=== PATIENT | female | born 1965 | race Caucasian/White ===

== ENCOUNTER 2022-03-10 17:18 | Inpatient (IN) | payer MEDICARE, OTHER ==
[~2022-03-10] VITALS: Ht 165.1 cm; Wt 83.9 kg
[2022-03-10] MEDS ORDERED: DULO60CA45 PO (17:57)
[2022-03-10] MEDS ORDERED: IPRA12.9 INH (17:58)
[2022-03-10] MEDS ORDERED: BLOOD SUGAR DIAGNOSTIC 1 EACH STRIP IN ONE (18:00)
[2022-03-10] MEDS ORDERED: QUET100T PO (18:00)
[2022-03-10] MEDS ORDERED: MAGNESIUM HYDROXIDE 30 ML UDC PO PRN (18:00)
[2022-03-10] MEDS ORDERED: EZET10TA32 MT (18:12)
[2022-03-10] MEDS ORDERED: TOPI25TA49 MT (18:12)
[2022-03-10] MEDS ORDERED: ROSU5TAB13 MT (18:12)
[2022-03-10] MEDS ORDERED: FLUT16SP16 BNOSTRILS (18:12)
[2022-03-10] MEDS ORDERED: BUDE10.2 INH (18:12)
[2022-03-10] MEDS ORDERED: LEVO-146 PO (18:12)
[2022-03-10] MEDS ORDERED: DIVA250T47 MT (18:15)
[2022-03-10] MEDS ORDERED: PLEC3TAB PO (18:18)
--- NOTE | 2022-03-10 18:46 | NUR ---
Pt. arrived in the unit via ambulance from on 5150 for GD and transported via a gurney. Pt. placed on 218B, v/s taken, contraband taken and pt. signed the admissions papers. Pt. alert/oriented x3 and confirmed on meds that pt. are taking. Dr. Maradiaga made aware of the admission and with orders. Will endorse to the incoming shift for the completion of the admission. Addendum: 03/10/22 at 1854 by HUGO QUEZADA RN Jae Treviño contacted at [phone] and made aware of the admission.
[2022-03-10 18:51] VITALS: BP 138/72
--- NOTE | 2022-03-10 19:30 | NUR ---
GPS RN NOTE, RECEIVED PATIENT AWAKE AND IN BED, NO S/S OR COMPLAINTS OF PAIN AT THIS TIME. PATIENT IS DISPLAYING NO S/S OF APPARENT DISTRESS AT THIS TIME. PATIENT BREATHING IS UNLABORED WITH EQUAL RISE AND FALL OF THE CHEST. PATIENT IS ALERT AND ORIENTED X 3 ON ROOM AIR WITH A SPO2 98%. PATIENT IS COMPLIANT WITH MEDICATIONS, HYPERVERBAL, ANXIOUS, PARANOID, POLITE, AND COOPERATIVE. PATIENT DENIES SUICIDAL AND HOMICIDAL IDEATIONS AT THIS TIME. PATIENT ASSISTED WITH TURNING AND REPOSITIONING Q2HR AND PRN FOR COMFORT AND CIRCULATION. PATIENT HAS NO NEEDS AT THIS TIME. PATIENT EDUCATED ON THE USE OF THE CALL SHEPPARD. PATIENT BED SIDE RAILS UP X 2 FOR SAFETY. PATIENT BED IS LOCKED AND LOW. WILL CONTINUE TO MONITOR THIS PATIENT Q15 MINUTES WITH THE HELP OF STAFF TO MAINTAIN SAFETY.
[2022-03-10 20:00] VITALS: BP 127/76
[2022-03-10] MEDS: LORAZEPAM 0.5 MG TABLET PO PRN (20:26)
--- NOTE | 2022-03-10 20:26 | NUR ---
GPS RN NOTE, PATIENT HAS A COMPLAINT OF FEELING ANXIOUS AND IS REQUESTING ATIVAN AT THIS TIME. PATIENT VITAL SIGNS ARE STABLE. GAVE ATIVAN 0.5MG PO Q6HR PRN ORDERED. WILL REASSESS FOR ANXIETY AND I WILL CONTINUE TO MONITOR THIS PATIENT WITH THE HELP OF STAFF.
[2022-03-10] MEDS ORDERED: FLUTICASONE PROPIONATE 16 GM BOTTLE NS SCH (23:00)
[2022-03-10] MEDS: TEMAZEPAM 7.5 MG CAPSULE PO PRN (23:20)
--- NOTE | 2022-03-10 23:28 | NUR ---
GPS RN NOTE, PATIENT HAS A COMPLAINT OF NOT BEING ABLE TO SLEEP AND IS REQUESTING RESTORIL AT THIS TIME. PATIENT VITAL SIGNS ARE STABLE. GAVE RESTORIL 7.5MG PO HS PRN ORDERED. WILL REASSESS FOR INSOMNIA AND I WILL CONTINUE TO MONITOR THIS PATIENT WITH THE HELP OF STAFF.
[2022-03-10] MEDS ORDERED: IPRATROPIUM NEB FS 0.5 MG/2.5 ML AMPUL.NEB NEB PRN (23:45)
[2022-03-11] MEDS: ACETAMINOPHEN 325 MG TABLET PO PRN ×2 (01:33→21:56)
[2022-03-11] MEDS: GUAIFENESIN/D-METHORPHAN HB 5 ML UDC PO PRN ×2 (01:33→21:45)
--- NOTE | 2022-03-11 01:33 | NUR ---
GPS RN NOTE, PATIENT HAS A COMPLAINT OF A HEADACHE AT 2 OUT 10 ON THE PAIN SCALE AND IS REQUESTING TYLENOL AT THIS TIME. PATIENT VITAL SIGNS ARE STABLE. GAVE TYLENOL 650MG PO Q6HR PRN ORDERED. WILL REASSESS PAIN AND I WILL CONTINUE TO MONITOR THIS PATIENT WITH THE HELP OF STAFF.
--- NOTE | 2022-03-11 01:34 | NUR ---
GPS RN NOTE, PATIENT HAS A COMPLAINT OF A COUGH AND IS REQUESTING ROBITUSSIN AT THIS TIME. PATIENT VITAL SIGNS ARE STABLE. GAVE ROBITUSSIN DM 5ML 1 UNIT DOSE PO Q6HR PRN ORDERED. WILL REASSESS FOR COUGH AND I WILL CONTINUE TO MONITOR THIS PATIENT WITH THE HELP OF STAFF.
[2022-03-11 08:00] VITALS: BP 118/78
[2022-03-11 08:05] LABS: CHOLESTEROL 149 mg/dL (<200); HDL CHOLESTEROL 61 mg/dL (40-60); LDL 67 mg/dL (0-99); TRIGLYCERIDES 115 mg/dL (30-150)
[2022-03-11 08:07] LABS: ALBUMIN 3.9 g/dL (3.4-5.0); BILIRUBIN,TOTAL 0.7 mg/dL (0.2-1.0); CREATININE 0.9 mg/dL (0.6-1.3); POTASSIUM 3.9 mmol/L (3.5-5.1); TOTAL PROTEIN, SERUM 7.3 g/dL (6.4-8.2)
[2022-03-11] MEDS: EZETIMIBE 10 MG TABLET PO SCH (08:37)
[2022-03-11] MEDS: LEVOTHYROXINE SODIUM 50 MCG TABLET PO SCH (08:37)
[2022-03-11] MEDS: BACI/NEOM/POLY B OINT PKT 1 UDPKT PACKET TP SCH ×2 (09:08→17:15)
[2022-03-11] MEDS: LIDOCAINE 5% (PATCH) 1 EA PATCH TP SCH (09:08)
[2022-03-11] MEDS: LORAZEPAM 0.5 MG TABLET PO PRN (10:03)
--- NOTE | 2022-03-11 10:03 | NUR ---
GPS RN NOTES: PATIENT C/O OF FEELING ANXIOUS AND IS REQUESTING ATIVAN AT THIS TIME. PATIENT'S VITAL SIGNS ARE STABLE. ADMINISTERED PRN ORDERED. WILL REASSESS FOR ANXIETY AND I WILL CONTINUE TO MONITOR THIS PATIENT WITH THE HELP OF STAFF.
--- NOTE | 2022-03-11 11:03 | NUR ---
PATIENT IN THE DINING ROOM IN NO ACUTE DISTRESS NOTED AT THIS TIME, NO S/S ANXIETY NOTED, MEDICATION EFFECTIVE
[2022-03-11] MEDS ORDERED: QUETIAPINE FUMARATE 25 MG TABLET PO PRN (11:30)
[2022-03-11] MEDS: QUETIAPINE FUMARATE 25 MG TABLET PO SCH ×2 (12:14→16:58)
[2022-03-11 16:05] VITALS: BP 132/69
[2022-03-11] MEDS: TOPIRAMATE 25 MG TABLET PO SCH (16:56)
--- NOTE | 2022-03-11 18:37 | NUR ---
GPS RN NOTE, PATIENT IN BED, AWAKE, ALERT, ORIENTED X 3. NO C/O PAIN OR DISCOMFORT AT THIS TIME. BREATHING EVEN AND UNLABORED. PATIENT IS DISPLAYING NO S/S OF APPARENT DISTRESS AT THIS TIME. PATIENT IS COMPLIANT WITH MEDICATIONS EXCEPT FOR SEROQUEL DUE AT 1700. PATIENT WITH EPISODES OF HYPERVERBAL, ANXIOUS, AND PARANOIA THE ENTIRE SHIFT BUT POLITE, AND COOPERATIVE. PATIENT DENIES SUICIDAL AND HOMICIDAL IDEATIONS THE ENTIRE SHIFT. ALL SAFETY MEASURES IMPLEMENTED. BED LOCKED AND IN LOWEST POSITION WITH BED ALARM ON. PATIENT BED SIDE RAILS UP X 2 FOR SAFETY. PATIENT HAS NO NEEDS AT THIS TIME. WILL ENDORSE TO NEXT SHIFT NURSE FOR CONTINUITY OF CARE.
[2022-03-11 20:00] VITALS: BP 125/68
[2022-03-11] MEDS: ATORVASTATIN 10 MG TABLET PO SCH (21:46)
[2022-03-11] MEDS ORDERED: IBUPROFEN 800 MG TABLET PO PRN (22:00)
[2022-03-11] MEDS ORDERED: QUETIAPINE FUMARATE 100 MG TABLET PO SCH (22:00)
[2022-03-12] MEDS ORDERED: IBUPROFEN 400 MG TABLET ONE (03:59)
[2022-03-12] MEDS: IBUPROFEN 400 MG TABLET PO PRN (04:13)
--- NOTE | 2022-03-12 05:02 | NUR ---
GPS RN NOTES: ALERT AND ORIENTATED X3. FREQUENTLY AT THE NURSING STATION ASKING FOR WATER, PAIN PILL, MOTRIN, WILL ASK WHEN WILL SHE GET HER MEDICATION TOMORROW AND WHAT TIMES. SHE IS HYPERVERBAL AND AN ATTENTION SEEKER. SHE SLEP FOR SHORT PERIODS. REQUESTED A WALKER TO AMBULAT SAFER, WALKER GIVEN TO HER.
[2022-03-12] MEDS: LEVOTHYROXINE SODIUM 50 MCG TABLET PO SCH (06:14)
[2022-03-12 08:00] VITALS: BP 147/89
[2022-03-12] MEDS: LIDOCAINE 5% (PATCH) 1 EA PATCH TP SCH (09:33)
[2022-03-12] MEDS: EZETIMIBE 10 MG TABLET PO SCH (09:33)
[2022-03-12] MEDS: TOPIRAMATE 25 MG TABLET PO SCH ×2 (09:34→16:05)
[2022-03-12] MEDS: QUETIAPINE FUMARATE 25 MG TABLET PO SCH ×2 (09:34→16:05)
[2022-03-12] MEDS: BACI/NEOM/POLY B OINT PKT 1 UDPKT PACKET TP SCH ×2 (09:36→16:07)
[2022-03-12] MEDS: LORAZEPAM 0.5 MG TABLET PO PRN (14:38)
[2022-03-12 16:00] VITALS: BP 150/85
[2022-03-12] MEDS: GUAIFENESIN/D-METHORPHAN HB 5 ML UDC PO PRN (16:04)
[2022-03-12 20:25] VITALS: BP 130/95
[2022-03-12] MEDS: ATORVASTATIN 10 MG TABLET PO SCH (21:46)
[2022-03-12] MEDS: TEMAZEPAM 7.5 MG CAPSULE PO PRN (21:48)
--- NOTE | 2022-03-12 21:49 | NUR ---
Pt c/o insomnia. Least restrictive measures ineffective. Restoril 7.5 mg po prn given as ordered. Will continue to monitor.
[2022-03-12] MEDS ORDERED: QUETIAPINE FUMARATE 100 MG TABLET PO SCH (22:00)
--- NOTE | 2022-03-12 22:52 | NUR ---
Post 1 hr Restoril effective. Pt asleep in bed easy to arouse. Frequent visual check done for safety. Will continue to monitor.
[2022-03-13] MEDS: GUAIFENESIN/D-METHORPHAN HB 5 ML UDC PO PRN (01:11)
--- NOTE | 2022-03-13 01:17 | NUR ---
Pt c/o cough and itchy throat. Robitussin DM syrup po prn given as ordered. Will continue to monitor.
--- NOTE | 2022-03-13 02:30 | NUR ---
Post 1 hr Robitussin DM cough syrup effective. No more cough. Frequent visual check done for safety. Will continue to monitor.
[2022-03-13] MEDS: LEVOTHYROXINE SODIUM 50 MCG TABLET PO SCH (06:15)
[2022-03-13] MEDS: IBUPROFEN 400 MG TABLET PO PRN (06:15)
--- NOTE | 2022-03-13 06:16 | NUR ---
Pt c/o head ache 10/09. Motrin 400 mg po prn given as ordered. Will continue to monitor.
--- NOTE | 2022-03-13 06:51 | NUR ---
Dimplerin effective. CT 04/11. Will continue to monitor. Will endorse to next shift.
--- NOTE | 2022-03-13 07:43 | NUR ---
WOUND CARE CONSULT: PT PRESENTS WITH DISCOLORATION TO RT FOOT/TOES AND WOUND TO LEFT PLANTAR GREAT TOE, PRESENT ON ADMISSION. PT STATES THAT SHE STEPPED ON BROKEN CERAMIC/GLASS PRIOR TO ADMISSION. PODIATRY CONSULT TO BE CALLED THIS AM. IN AGREEMENT WITH PLAN OF CARE.
[2022-03-13 08:00] VITALS: BP 139/88
[2022-03-13] MEDS: BACI/NEOM/POLY B OINT PKT 1 UDPKT PACKET TP SCH ×2 (09:00→17:12)
[2022-03-13] MEDS: QUETIAPINE FUMARATE 25 MG TABLET PO SCH ×2 (09:00→17:11)
[2022-03-13] MEDS: EZETIMIBE 10 MG TABLET PO SCH (10:04)
[2022-03-13] MEDS: TOPIRAMATE 25 MG TABLET PO SCH ×2 (10:04→17:11)
[2022-03-13] MEDS: LIDOCAINE 5% (PATCH) 1 EA PATCH TP SCH (10:06)
--- NOTE | 2022-03-13 13:11 | NUR ---
RN NOTES RECEIVED PT AWAKE, ALERT AND ORIENTATED X3, EXTREMELY NEEDY AND ATTENTION SEEKING, TALKS AND RAMLBES ON VERY FAST FROM TOPIC TO TOPIC, SHE IS HYPER - ACTIVE, HYPER-VERBAL AND NOT EASY TO CALM DOWN AT THIS TIME, RE-DIRECTED AND EXPLAINED TO PLEASE BE COURTEOUS OF OTHER PATIENTS IT IS EARLY IN THE AM AND OTHERS ARE TRYING TO SLEEP. SHE IS USING THE WALKER TO AMBULATE AND HAS A SEMI - STEADY GAIT, ABLE TO MAKE ALL NEEDS KNOWN, WOUNDS ASSESSED BY FUEL ISLAND ATTENDANT, FRESH WATER GIVEN AND EYE DROPS PROVIDED IN EACH EYE, COMPLIANT WITH ALL MEDICATION ORDERS, TO BE MOVED TO MED - SURG FOR DEBRIDEMENT LATER TODAY FOR PROCEDURE ON THE LEFT GREAT TOE.
--- NOTE | 2022-03-13 14:52 | NUR ---
STEPHANIE Clinical Note: Pt placed on a 5150 hold for GD. Pt brought to the hospital due to pt being unable to care for self at home. Patient currently resides at home located at [address] [place] [address]; ([phone]). Patient reported that she does not want to return back home and wants placement. STEPHANIE will contact pt's daughter Mellisa ([phone]) to discuss treatment and discharge plan.
--- NOTE | 2022-03-13 14:52 | NUR ---
STEPHANIE Initial Discharge Note: Patient currently resides at home located at [address] [place] [id number]; ([phone]). Patient reported that she does not want to return back home and wants placement. STEPHANIE will contact pt's daughter Mellisa ([phone]) to discuss treatment and discharge plan. STEPHANIE will work with the MD, treatment team, and family to help coordinate appropriate discharge.
--- NOTE | 2022-03-13 14:53 | NUR ---
Treatment Plan: Pt unable to sign treatment plan due to being manic and hyperverbal.
--- NOTE | 2022-03-13 14:55 | NUR ---
Social Work Note/Substance Abuse Intervention: Patient was provided with a brief substance abuse intervention and referred to [facility] ([phone]), [facility] ([phone]), and [facility] ([phone]) for drinking alcohol twice a year.
--- NOTE | 2022-03-13 15:11 | NUR ---
STEPHANIE Family Contact: SW contacted pt's daughter Mellisa ([phone]) and left a detailed voicemail.
--- NOTE | 2022-03-13 15:16 | NUR ---
Registered Physical Therapist: Per pt's request, SW contacted [employer] requesting to gather more information about pt and to locate pt's chief scientific officer (Sloane). STEPHANIE spoke with Galina Leal coordinator who stated that she will further investigate to find family service caseworker Sloane and they will contact this technical writer and editor.
[2022-03-13 16:00] VITALS: BP 122/85
[2022-03-13 20:03] VITALS: BP 116/80
[2022-03-13] MEDS: ATORVASTATIN 10 MG TABLET PO SCH (21:24)
[2022-03-13] MEDS: TEMAZEPAM 7.5 MG CAPSULE PO PRN (21:24)
[2022-03-13] MEDS ORDERED: QUETIAPINE FUMARATE 100 MG TABLET PO SCH (22:00)
[2022-03-14 08:00] VITALS: BP 124/82
[2022-03-14] MEDS: LEVOTHYROXINE SODIUM 50 MCG TABLET PO SCH (08:03)
[2022-03-14] MEDS: QUETIAPINE FUMARATE 25 MG TABLET PO SCH ×4 (08:10→17:33)
[2022-03-14] MEDS: TOPIRAMATE 25 MG TABLET PO SCH ×2 (08:10→17:33)
[2022-03-14] MEDS: LIDOCAINE 5% (PATCH) 1 EA PATCH TP SCH (08:10)
[2022-03-14] MEDS: EZETIMIBE 10 MG TABLET PO SCH (08:10)
[2022-03-14] MEDS: BACI/NEOM/POLY B OINT PKT 1 UDPKT PACKET TP SCH (08:15)
--- NOTE | 2022-03-14 10:13 | NUR ---
Content Management Consultant: SW contacted spoke with pt's bilingual patient support caseworker Sloane ([phone]) and discussed pt's discharge plan. She stated that she is in the process of finding pt placement called [facility] but they do not have a bed available at the moment and is unsure how long it will take. SETPHANIE stated this senior technical writer can find pt a temporarily placement in the meantime until it is figured out and she was agreeable of this.
--- NOTE | 2022-03-14 10:50 | NUR ---
STEPHANIE Family Contact: STEPHANIE spoke with patient's daughter Alberto ([phone]) who stated that Mellisa the other daughter does not want to be involved in patient's care. Alberto reported that she is the payee for pt and is in the process of notarizing DPOA documents. Alberto stated that she has been working with pt's upper caser Sloane who is helping with placement at [facility]. She did stated if this does not work out she would want this automobile service writer to find a temporarily placement until they find an appropriate placement. Daughter preferred in [place] location. Daughter shared with this automobile service writer that pt has been manic and labile at home and has been uncooperative with her. She stated that pt's behavior has escalated and stated that she assumes that pt has been drinking alcohol consistently. STEPHANIE will continue working with daughter for placement.
--- NOTE | 2022-03-14 12:17 | NUR ---
STEPHANIE Family Contact: SW spoke with patient's daughter Alberto ([phone]) and discussed the recommendation for pt that she will require a higher level of care such as a retirement before she goes to a residential program. Daughter was agreeable of this and agreeable of this press writer to send clinicals to [facility].
--- NOTE | 2022-03-14 12:18 | NUR ---
SNF Referral: SW sent clinicals to [facility] to Zahra Valencia ([phone]) for placement. SW sent H & P, progress notes, and medication list.
[2022-03-14] MEDS: GABAPENTIN 100 MG CAPSULE PO SCH ×2 (13:35→17:34)
--- NOTE | 2022-03-14 15:25 | NUR ---
SNF Contact: SW received a call from [facility] to Zahra Valencia ([phone]) who stated pt is accepted.
[2022-03-14 15:57] VITALS: BP 133/84
--- NOTE | 2022-03-14 17:49 | NUR ---
pt refused seroquel.[facility]
[2022-03-14] MEDS: NEOMY SULF/BACITRAC ZN/POLY 15 GM TUBE TP SCH (17:56)
--- NOTE | 2022-03-14 18:47 | NUR ---
RN-NOTES PATIENT VISIBLE IN THE UNIT A/O X3. NOTED WITH EASILY ANGRY,DEMANDING AND NEEDY BEHAVIOR. NO ACUTE DISTRESS NOTED.COMPLIANT WITH MEDICATIONS. AMBULATORY WITH WALKER. ALL NEEDS ATTENDED AND ANTICIPATED. WILL CONT. MONITORING FOR SAFETY AND BEHAVIOR. WILL ENDORSE TO INCOMING NURSE FOR CONTINUITY OF CARE
[2022-03-14 20:00] VITALS: BP 142/79
[2022-03-14] MEDS: QUETIAPINE FUMARATE 100 MG TABLET PO SCH (21:20)
[2022-03-14] MEDS: ATORVASTATIN 10 MG TABLET PO SCH (21:20)
[2022-03-14] MEDS: TEMAZEPAM 7.5 MG CAPSULE PO PRN (21:24)
[2022-03-15] MEDS: LEVOTHYROXINE SODIUM 50 MCG TABLET PO SCH (07:07)
[2022-03-15] MEDS: IBUPROFEN 400 MG TABLET PO PRN ×3 (07:24→22:54)
[2022-03-15 08:00] VITALS: BP 141/65
[2022-03-15] MEDS: QUETIAPINE FUMARATE 25 MG TABLET PO SCH ×3 (09:18→17:24)
[2022-03-15] MEDS: TOPIRAMATE 25 MG TABLET PO SCH ×2 (09:18→17:25)
[2022-03-15] MEDS: EZETIMIBE 10 MG TABLET PO SCH (09:18)
[2022-03-15] MEDS: GABAPENTIN 100 MG CAPSULE PO SCH ×3 (09:18→17:25)
[2022-03-15] MEDS: NEOMY SULF/BACITRAC ZN/POLY 15 GM TUBE TP SCH ×2 (09:19→17:26)
[2022-03-15] MEDS: LIDOCAINE 5% (PATCH) 1 EA PATCH TP SCH (09:19)
--- NOTE | 2022-03-15 11:24 | NUR ---
Court Notification: SW contacted pt's daughter Alberto ([phone]) and left a voicemail of pt's 6961 hearing.
--- NOTE | 2022-03-15 11:25 | NUR ---
Court Hearing: Patient's court hearing for 4920 was today and it was upheld for danger to others and GD.
[2022-03-15] MEDS ORDERED: LIDOCAINE 1% INJ 50 ML MDV IJ ONE ×2 (15:30→16:00)
--- NOTE | 2022-03-15 15:40 | NUR ---
FALGUNICO: Pt was seen by Dr Cooley Dpm.
[2022-03-15 16:00] VITALS: BP 138/83
--- NOTE | 2022-03-15 16:00 | NUR ---
NURSE NOTE; PT ABOUT TO HAVE PROCEDURE TO FOOT, REQUESTED IBUPROPHEN PO. IBUPROPHEN ADMINISTERED ORDERED. PT BETO WELL. WILL CONT TO MONITOR.
--- NOTE | 2022-03-15 17:45 | NUR ---
NURSE NOTE: DR MANRIQUEZ DID DEBRIDEMENT OF L TOE AT BEDSIDE. PT BETO WELL. WILL CONT TO MONITOR.
[2022-03-15 19:50] VITALS: BP 119/85
[2022-03-15 20:00] VITALS: BP_SYST 112; BP_SYST 119; BP_DIAS 52; BP_DIAS 85
[2022-03-15] MEDS: ATORVASTATIN 10 MG TABLET PO SCH (22:54)
[2022-03-15] MEDS: QUETIAPINE FUMARATE 100 MG TABLET PO SCH (22:54)
[2022-03-16] MEDS: IBUPROFEN 400 MG TABLET PO PRN ×2 (06:17→20:05)
[2022-03-16] MEDS: LEVOTHYROXINE SODIUM 50 MCG TABLET PO SCH (07:33)
[2022-03-16 08:00] VITALS: BP 116/72
[2022-03-16] MEDS: GABAPENTIN 100 MG CAPSULE PO SCH (08:28)
[2022-03-16] MEDS: QUETIAPINE FUMARATE 25 MG TABLET PO SCH ×3 (08:28→17:04)
[2022-03-16] MEDS: LIDOCAINE 5% (PATCH) 1 EA PATCH TP SCH (08:29)
[2022-03-16] MEDS: TOPIRAMATE 25 MG TABLET PO SCH ×2 (08:29→17:04)
[2022-03-16] MEDS: EZETIMIBE 10 MG TABLET PO SCH (08:29)
[2022-03-16] MEDS: GABAPENTIN 300 MG CAPSULE PO SCH ×3 (09:00→17:04)
--- NOTE | 2022-03-16 09:10 | NUR ---
RN-NOTES NEURONTIN 300MG P.O NOT ADMINISTER DUE TO NEURONTIN 200MG P.O WAS GIVEN AT 0828 AM.
[2022-03-16] MEDS: NEOMY SULF/BACITRAC ZN/POLY 15 GM TUBE TP SCH ×2 (09:14→17:05)
[2022-03-16 16:00] VITALS: BP 120/84
--- NOTE | 2022-03-16 18:35 | NUR ---
RN-NOTES PATIENT VISIBLE IN THE UNIT A/O X3. NOTED WITH EASILY ANGRY,HOARDING HOSPITAL PAPERS AND SOCKS IN HER ROOM, DEMANDING AND NEEDY BEHAVIOR. NO ACUTE DISTRESS NOTED.COMPLIANT WITH MEDICATIONS. AMBULATORY WITH WALKER. ALL NEEDS ATTENDED AND ANTICIPATED. WILL CONT. MONITORING FOR SAFETY AND BEHAVIOR. WILL ENDORSE TO INCOMING NURSE FOR CONTINUITY OF CARE.
--- NOTE | 2022-03-16 19:46 | NUR ---
RN NOTES:PATIENT SITTING IN HER BED ,NO S/SX OF ACUTE DISTRESS NOTED,EASILY AGITATED,DISORGANIZED,GUARDED PARANOID,ANXIOUS POOR JUDGEMENT INSIGHT AND IMPULSE CONTROL, NEEDY DEMENDING , HYPERVERBAL ,INTRUSIVE,NEEDS FREQUENT REDIRECTION, ALL NEEDS ATTENDED AND ANTICIPATED, DENIES SI/HI AT THIS TIME.ENCOURAGE TO VERBALIZED ANY FEELING OR CONCERN, SAFETY MEASURES IN PLACE. WILL CONTINUE TO MONITOR .
[2022-03-16 20:00] VITALS: BP 122/89
[2022-03-16] MEDS: ATORVASTATIN 10 MG TABLET PO SCH (21:34)
[2022-03-16] MEDS: QUETIAPINE FUMARATE 100 MG TABLET PO SCH (21:34)
[2022-03-17 08:00] VITALS: BP 120/84
[2022-03-17] MEDS: NEOMY SULF/BACITRAC ZN/POLY 15 GM TUBE TP SCH ×2 (08:41→16:47)
[2022-03-17] MEDS: GABAPENTIN 300 MG CAPSULE PO SCH ×3 (08:54→16:23)
[2022-03-17] MEDS: EZETIMIBE 10 MG TABLET PO SCH (08:54)
[2022-03-17] MEDS: LIDOCAINE 5% (PATCH) 1 EA PATCH TP SCH (08:54)
[2022-03-17] MEDS: TOPIRAMATE 25 MG TABLET PO SCH ×2 (08:54→16:23)
[2022-03-17] MEDS: LEVOTHYROXINE SODIUM 50 MCG TABLET PO SCH (08:54)
[2022-03-17] MEDS: QUETIAPINE FUMARATE 25 MG TABLET PO SCH ×3 (08:55→16:23)
[2022-03-17] MEDS: LORAZEPAM 0.5 MG TABLET PO PRN ×2 (10:11→17:29)
[2022-03-17] MEDS: IBUPROFEN 400 MG TABLET PO PRN ×2 (14:23→23:20)
[2022-03-17 16:00] VITALS: BP 129/82
[2022-03-17] MEDS: GUAIFENESIN/D-METHORPHAN HB 5 ML UDC PO PRN (16:23)
[2022-03-17 20:00] VITALS: BP 130/85
--- NOTE | 2022-03-17 20:52 | NUR ---
RN NOTES: PATIENT SITTING IN HER ROOM ,NO S/SX OF ACUTE DISTRESS NOTED,EASILY AGITATED,DISORGANIZED,GUARDED PARANOID,ANXIOUS POOR JUDGEMENT INSIGHT AND IMPULSE CONTROL, NEEDY, DEMENDING , HYPERVERBAL HOARDING HOSPITAL USED DIRTY AND CLEAN SUPPLIES IN HER ROOM, INTRUSIVE,NEEDS FREQUENT REDIRECTION, ALL NEEDS ATTENDED AND ANTICIPATED, DENIES SI/HI AT THIS TIME.ENCOURAGE TO VERBALIZED ANY FEELING OR CONCERN, SAFETY MEASURES IN PLACE. WILL CONTINUE TO MONITOR .
[2022-03-17] MEDS: QUETIAPINE FUMARATE 100 MG TABLET PO SCH (21:30)
[2022-03-17] MEDS: ATORVASTATIN 10 MG TABLET PO SCH (21:30)
[2022-03-17] MEDS: MAG HYDROX/AL HYDROX/SIMETH 30 ML UDC PO PRN (23:21)
[2022-03-18] MEDS: LEVOTHYROXINE SODIUM 50 MCG TABLET PO SCH (07:46)
[2022-03-18 08:00] VITALS: BP 118/77
[2022-03-18] MEDS: GABAPENTIN 300 MG CAPSULE PO SCH ×3 (08:54→16:47)
[2022-03-18] MEDS: LIDOCAINE 5% (PATCH) 1 EA PATCH TP SCH (08:54)
[2022-03-18] MEDS: EZETIMIBE 10 MG TABLET PO SCH (08:54)
[2022-03-18] MEDS: QUETIAPINE FUMARATE 25 MG TABLET PO SCH ×4 (08:54→22:05)
[2022-03-18] MEDS: TOPIRAMATE 25 MG TABLET PO SCH ×2 (08:54→16:46)
[2022-03-18] MEDS: NEOMY SULF/BACITRAC ZN/POLY 15 GM TUBE TP SCH ×2 (08:55→16:47)
[2022-03-18] MEDS: IBUPROFEN 400 MG TABLET PO PRN ×3 (09:39→22:07)
[2022-03-18] MEDS: LORAZEPAM 0.5 MG TABLET PO PRN (09:39)
--- NOTE | 2022-03-18 09:40 | NUR ---
NURSE NOTE: PT ANXIOUS AND IN PAIN. REQUESTED IBUPROPHEN AND ATIVAN AT THIS TIME. ADMINISTERED ORDERED. PT BETO WELL. WILL CONT TO MONITOR.
--- NOTE | 2022-03-18 14:40 | NUR ---
NURSE NOTE: PT SAYS SHE IS FEELING BETTER AND DENIES PAIN. ATIVAN AND IBUPROPHEN EFFECTIVE AT THIS TIME. WILL CONT TO MONITOR.
[2022-03-18 16:00] VITALS: BP 115/69
[2022-03-18 20:00] VITALS: BP 125/71
[2022-03-18] MEDS: QUETIAPINE FUMARATE 100 MG TABLET PO SCH (22:05)
[2022-03-18] MEDS: ATORVASTATIN 10 MG TABLET PO SCH (22:06)
[2022-03-19] MEDS: MAG HYDROX/AL HYDROX/SIMETH 30 ML UDC PO PRN (01:55)
--- NOTE | 2022-03-19 02:42 | NUR ---
Patient is ambulating within the room. She is alert and orientatedX4. She is continually discussing what will happen to her home, all of the things that she has accumulated, how will it be dispersed. Eventhough she is alert and orientated, she has scattered thoughts. She denies SI. Her voice and words are clear. Addendum: 03/19/22 at 0251 by REGISTRY [facility] INPATIENT RN1 RN The patient continues to discuss what has happened to the things within her room, what has happened to them. Dressing intact. Pain management implemented.
--- NOTE | 2022-03-19 06:43 | NUR ---
This patient was treated with motrin at 2200, and she admits to pain relief and adequate pain control.
[2022-03-19 08:00] VITALS: BP 133/77
[2022-03-19] MEDS: LEVOTHYROXINE SODIUM 50 MCG TABLET PO SCH (08:05)
[2022-03-19] MEDS: EZETIMIBE 10 MG TABLET PO SCH (08:50)
[2022-03-19] MEDS: GABAPENTIN 300 MG CAPSULE PO SCH ×3 (08:50→17:08)
[2022-03-19] MEDS: TOPIRAMATE 25 MG TABLET PO SCH ×2 (08:50→17:09)
[2022-03-19] MEDS: QUETIAPINE FUMARATE 25 MG TABLET PO SCH ×4 (08:50→21:39)
[2022-03-19] MEDS: NEOMY SULF/BACITRAC ZN/POLY 15 GM TUBE TP SCH ×2 (08:51→17:35)
[2022-03-19] MEDS: LIDOCAINE 5% (PATCH) 1 EA PATCH TP SCH (09:00)
[2022-03-19 16:00] VITALS: BP 127/86
[2022-03-19 20:43] VITALS: BP 133/79
[2022-03-19] MEDS: ATORVASTATIN 10 MG TABLET PO SCH (21:38)
[2022-03-19] MEDS: QUETIAPINE FUMARATE 100 MG TABLET PO SCH (21:39)
[2022-03-19] MEDS: GUAIFENESIN/D-METHORPHAN HB 5 ML UDC PO PRN (21:46)
--- NOTE | 2022-03-19 21:47 | NUR ---
Pt c/o cough and itchy throat. Robitussin DM syrup 5 ml po prn given as ordered. Will continue to monitor.
[2022-03-19] MEDS: IBUPROFEN 400 MG TABLET PO PRN (22:29)
--- NOTE | 2022-03-19 22:32 | NUR ---
Pt c/o Left jaw pain 10/09. Motrin 400 mg po prn given as ordered. Will continue to monitor.
--- NOTE | 2022-03-19 22:50 | NUR ---
Post 1 hr Robitussin DM syrup effective. No more cough or itchy throat. Will continue to monitor.
--- NOTE | 2022-03-19 23:40 | NUR ---
Post 1 hr Motrin effective. RI 0/10. Frequent visual check done for safety. Will continue to monitor.
--- NOTE | 2022-03-20 02:48 | NUR ---
GENERAL HOUSE WORKER reported he heard a thump noise. He found pt lying on floor by her bed. Pt alert and oriented x 3 and states," i was sleeping and rolled off the bed and landed on my right elbow." No head injury noted. Full body check done. No lumps or bumps noted. Right elbow with no apparent injury. No bruising or swelling noted. No c/o pain. Pt was able to stand up with own strength with minimal assistance. Vital signs taken. BP- 114/78, HR-85, RR 19, O2 sat 98%, T 98.0. No s/s of any kind of distress. Respiration even and unlabored without SOB noted. Charge Nurse aware. Reported to bingo caller MD Sarbjit Zurita and with no new orders. Daughter Alberto Treviño [phone] called and left voice message. Will continue to monitor. Frequent visual check done for safety. Pt lying in bed calmly. Will continue to monitor. Will endorse to next shift.
[2022-03-20] MEDS: LEVOTHYROXINE SODIUM 50 MCG TABLET PO SCH (06:14)
[2022-03-20 08:00] VITALS: BP 124/69
[2022-03-20] MEDS: TOPIRAMATE 25 MG TABLET PO SCH ×2 (09:00→18:21)
[2022-03-20] MEDS: QUETIAPINE FUMARATE 25 MG TABLET PO SCH ×3 (09:00→18:21)
[2022-03-20] MEDS: EZETIMIBE 10 MG TABLET PO SCH (09:00)
[2022-03-20] MEDS: GABAPENTIN 300 MG CAPSULE PO SCH ×3 (09:00→17:00)
[2022-03-20] MEDS: NEOMY SULF/BACITRAC ZN/POLY 15 GM TUBE TP SCH ×2 (09:01→17:00)
[2022-03-20] MEDS: LIDOCAINE 5% (PATCH) 1 EA PATCH TP SCH (09:01)
[2022-03-20] MEDS: LITHIUM CARBONATE 150 MG CAPSULE PO SCH ×2 (13:23→20:52)
[2022-03-20 16:00] VITALS: BP 127/80
[2022-03-20] MEDS: CLINDAMYCIN HCL 150 MG CAPSULE PO SCH (18:24)
[2022-03-20 18:29] LABS: BASOPHILS # (AUTO) 0.1 K/uL (0.0-0.2); BASOPHILS % (AUTO) 0.8 % (0.0-2.0); EOSINOPHILS % (AUTO) 2.8 % (0.0-6.0); HEMATOCRIT 39 % (33-45); HEMOGLOBIN 12.9 g/dL (11.5-14.8); LYMPHOCYTES # (AUTO) 2.4 K/uL (0.8-4.8); LYMPHOCYTES % (AUTO) 34.5 % (20.0-44.0); MEAN CORPUSCULAR HGB CONC 33 g/dl (31.0-36.0); MEAN CORPUSCULAR VOLUME 92 fL (82-100); MONOCYTES # (AUTO) 0.7 K/uL (0.1-1.30); MONOCYTES % (AUTO) 9.3 % (2.0-12.0); NEUTROPHILS # (AUTO) 3.7 K/uL (1.8-8.9); NEUTROPHILS % (AUTO) 52.6 % (43.0-81.0); PLATELET COUNT (AUTO) 294 K/uL (150-450); RED BLOOD CELL COUNT(AUTO) 4.21 MIL/uL (4.0-5.2)
[2022-03-20 19:31] LABS: ALBUMIN 3.9 g/dL (3.4-5.0); BILIRUBIN,TOTAL 0.3 mg/dL (0.2-1.0); CALCIUM, SERUM 8.9 mg/dL (8.5-10.1); CREATININE 0.9 mg/dL (0.6-1.3); POTASSIUM 3.7 mmol/L (3.5-5.1); TOTAL PROTEIN, SERUM 7.1 g/dL (6.4-8.2)
[2022-03-20 19:39] LABS: THYROID STIMULATING HORMONE 1.045 uIU/mL (0.358-3.74)
[2022-03-20 20:30] VITALS: BP 134/77
[2022-03-20] MEDS: ATORVASTATIN 10 MG TABLET PO SCH (21:02)
[2022-03-20] MEDS ORDERED: QUETIAPINE FUMARATE 100 MG TABLET PO SCH (22:00)
[2022-03-21] MEDS: CLINDAMYCIN HCL 150 MG CAPSULE PO SCH ×4 (00:22→17:03)
[2022-03-21] MEDS: IBUPROFEN 400 MG TABLET PO PRN (03:13)
--- NOTE | 2022-03-21 05:20 | NUR ---
RN NOTE PATIENT WAS SEEN BY MAINTENANCE SUPERVISOR CALLING S Addendum: 03/21/22 at 0644 by HUDSON VELÁSQUEZ RN MAINTENANCE SUPERVISOR SEEN PATIENT CALLING 911 WHILE DOING HIS ROUNDS AND HE INTERCEPTED THE CALL RIGHT AWAY. REDIRECTED PATIENT TO HER ROOM. WHEN ASKED PATIENT WHAT HAPPENED? PATIENT STATED " I WANNA GO HOME" HOWEVER, PATIENT APOLOGIZED OF THE ACTIONS SHE MADE. ADMINISTERED ATIVAN 0.5MG PO ORDERED. WILL CONTINUE TO MONITOR PATIENT'S SAFETY.
[2022-03-21] MEDS: LORAZEPAM 0.5 MG TABLET PO PRN (05:31)
[2022-03-21] MEDS: LEVOTHYROXINE SODIUM 50 MCG TABLET PO SCH (06:17)
[2022-03-21] MEDS: MAG HYDROX/AL HYDROX/SIMETH 30 ML UDC PO PRN (06:39)
[2022-03-21 08:00] VITALS: BP 106/58
[2022-03-21] MEDS: GABAPENTIN 300 MG CAPSULE PO SCH ×3 (08:56→16:27)
[2022-03-21] MEDS: LIDOCAINE 5% (PATCH) 1 EA PATCH TP SCH (08:57)
[2022-03-21] MEDS: EZETIMIBE 10 MG TABLET PO SCH (08:57)
[2022-03-21] MEDS: LITHIUM CARBONATE 150 MG CAPSULE PO SCH ×2 (08:57→21:15)
[2022-03-21] MEDS: TOPIRAMATE 25 MG TABLET PO SCH ×2 (08:57→16:27)
[2022-03-21] MEDS: QUETIAPINE FUMARATE 25 MG TABLET PO SCH (08:57)
[2022-03-21] MEDS: NEOMY SULF/BACITRAC ZN/POLY 15 GM TUBE TP SCH ×2 (08:57→16:28)
[2022-03-21] MEDS ORDERED: IV NS 0.9% 250 ML IV ONE (11:52)
[2022-03-21] MEDS ORDERED: IOHEXOL-300 100 ML VIAL IV ONE (11:52)
[2022-03-21] MEDS: OLANZAPINE 2.5 MG TABLET PO SCH ×2 (13:05→16:27)
[2022-03-21 16:00] VITALS: BP 112/68
[2022-03-21] MEDS ORDERED: SUMATRIPTAN SUCCINATE 100 MG TABLET PO PRN (17:00)
[2022-03-21 20:52] VITALS: BP 115/75
[2022-03-21] MEDS: ATORVASTATIN 10 MG TABLET PO SCH (21:10)
[2022-03-21] MEDS: OLANZAPINE 10 MG TABLET PO SCH (21:14)
[2022-03-22] MEDS: CLINDAMYCIN HCL 150 MG CAPSULE PO SCH ×5 (00:24→17:20)
[2022-03-22] MEDS: IBUPROFEN 400 MG TABLET PO PRN ×2 (00:24→10:24)
[2022-03-22] MEDS: LORAZEPAM 0.5 MG TABLET PO PRN (00:26)
--- NOTE | 2022-03-22 00:31 | NUR ---
Pt c/o pain to L shoulder 10/09. Motrin 400 mg po prn given as ordered. Pt c/o anxiety. Least restrictive measures ineffective. Ativan 0.5 mg po prn given as ordered. Will continue to monitor.
[2022-03-22] MEDS: LEVOTHYROXINE SODIUM 50 MCG TABLET PO SCH (06:05)
[2022-03-22 08:00] VITALS: BP 115/75
[2022-03-22] MEDS: LIDOCAINE 5% (PATCH) 1 EA PATCH TP SCH (09:00)
[2022-03-22] MEDS: GABAPENTIN 300 MG CAPSULE PO SCH ×3 (09:00→16:01)
[2022-03-22] MEDS: NEOMY SULF/BACITRAC ZN/POLY 15 GM TUBE TP SCH ×2 (09:00→16:10)
[2022-03-22] MEDS: EZETIMIBE 10 MG TABLET PO SCH (10:20)
[2022-03-22] MEDS: OLANZAPINE 2.5 MG TABLET PO SCH ×2 (10:20→16:01)
[2022-03-22] MEDS: LITHIUM CARBONATE 150 MG CAPSULE PO SCH ×2 (10:20→20:46)
[2022-03-22] MEDS: PANTOPRAZOLE 40 MG TABLET.DR PO SCH (10:21)
[2022-03-22] MEDS: TOPIRAMATE 25 MG TABLET PO SCH ×2 (10:21→16:01)
--- NOTE | 2022-03-22 14:47 | NUR ---
RN-CO: IMETREX GIVEN FOR MIGRANE.
[2022-03-22 16:00] VITALS: BP 143/85
--- NOTE | 2022-03-22 16:10 | NUR ---
RN-CO: PT REFUSED NEOSPORIN OINTMENT, STATED "I DON'T NEED THAT."
[2022-03-22 19:53] VITALS: BP 124/80
[2022-03-22] MEDS: ATORVASTATIN 10 MG TABLET PO SCH (21:08)
[2022-03-22] MEDS: OLANZAPINE 10 MG TABLET PO SCH (21:10)
[2022-03-23] MEDS: CLINDAMYCIN HCL 150 MG CAPSULE PO SCH ×4 (00:23→17:19)
[2022-03-23] MEDS: LORAZEPAM 0.5 MG TABLET PO PRN ×2 (01:14→09:57)
[2022-03-23] MEDS: LEVOTHYROXINE SODIUM 50 MCG TABLET PO SCH (06:37)
[2022-03-23] MEDS: PANTOPRAZOLE 40 MG TABLET.DR PO SCH (06:37)
[2022-03-23 08:00] VITALS: BP 123/89
[2022-03-23] MEDS: GABAPENTIN 300 MG CAPSULE PO SCH ×3 (08:56→17:19)
[2022-03-23] MEDS: EZETIMIBE 10 MG TABLET PO SCH (08:56)
[2022-03-23] MEDS: OLANZAPINE 2.5 MG TABLET PO SCH ×2 (08:57→17:19)
[2022-03-23] MEDS: TOPIRAMATE 25 MG TABLET PO SCH ×2 (08:57→17:19)
[2022-03-23] MEDS: LIDOCAINE 5% (PATCH) 1 EA PATCH TP SCH (08:57)
[2022-03-23] MEDS: NEOMY SULF/BACITRAC ZN/POLY 15 GM TUBE TP SCH ×2 (08:58→17:20)
[2022-03-23] MEDS: LITHIUM CARBONATE 150 MG CAPSULE PO SCH (09:00)
--- NOTE | 2022-03-23 09:57 | NUR ---
rn notes administered Ativan 0.5 mg po prn for anxiety per patient request, bp 123/89,p-92. will follow up.
[2022-03-23] MEDS: DIVALPROEX SODIUM 250 MG TABLET.DR PO SCH ×2 (12:42→17:19)
--- NOTE | 2022-03-23 12:44 | NUR ---
STEPHANIE Family Contact: STEPHANIE received a call from pt's daughter Alberto ([phone]) wanting an update on pt's status. STEPHANIE left a detailed voicemail of pt's status of medication change and being accepted at [facility]. Addendum: 03/23/22 at 1542 by STEPHANIE PERDOMO Correct Number: ([phone])
--- NOTE | 2022-03-23 12:47 | NUR ---
Book Sewing Machine Operator: SW contacted spoke with pt's showcase maker Sloane ([phone]) and left a detailed voicemail of pt's status.
[2022-03-23] MEDS ORDERED: FLUTICASONE PROPIONATE 16 GM BOTTLE NS PRN (15:20)
--- NOTE | 2022-03-23 15:42 | NUR ---
STEPHANIE Family Contact: STEPHANIE contacted pt's daughter Alberto ([phone]) and left a voicemail of CT scan appeared normal and that the neurologist recommends pt to see an orthopedic. STEPHANIE stated if she will be having her resource of a doctor if she would want this junior technical writer to notify the SNF to coordinate this.
--- NOTE | 2022-03-23 15:56 | NUR ---
Orthopedic Appointment: STEPHANIE contacted [address] [facility] [address], [place] [address], F: [phone] and spoke with russet repairer Lidia to scheduled an appointment for April 12 at 9AM. STEPHANIE notified Jade montanez from [facility] of this Appointment. STEPHANIE faxed patient's clinicals to the office.
[2022-03-23 16:00] VITALS: BP 135/94
[2022-03-23] MEDS: GUAIFENESIN/D-METHORPHAN HB 5 ML UDC PO PRN (17:20)
--- NOTE | 2022-03-23 17:21 | NUR ---
rn notes administered Robitussin syrup for cough per patient request.
[2022-03-23] MEDS: IBUPROFEN 400 MG TABLET PO PRN (17:46)
--- NOTE | 2022-03-23 17:47 | NUR ---
rn notes administered Motrin 400 mg po prn for generalized pain 10 per patient request. will follow up.
--- NOTE | 2022-03-23 18:00 | NUR ---
RN NOTES PATIENT A/O X3, MED COMPLIANT, AMBULATORY SELF CARE, MEDICATION WERE ADMINISTERED FOR PAIN, AND SORE THROAT EFFECTIVE. DUE MEDICATION TAKEN. REDIRECTABLE.
--- NOTE | 2022-03-23 19:20 | NUR ---
GPS RN NOTES RECEIVED LYING ON BED A/O X3,ABLE TO VERBALIZED NEEDS,HYPERVERBAL MOST OF THE TIME.AMBULATES WITH WALKER,STEADY GAIT.EPISODE OF ANXIETY NOTED,REDIRECTABLE,FOLLOW INSTRUCTIONS,MED COMPLIANT.WILL CONTINUE TO MONITOR BEHAVIOR AND MANAGE ACCORDINGLY
[2022-03-23 20:00] VITALS: BP_SYST 129; BP_SYST 145; BP_DIAS 79; BP_DIAS 89
[2022-03-23] MEDS: ATORVASTATIN 10 MG TABLET PO SCH (21:34)
[2022-03-23] MEDS: OLANZAPINE 10 MG TABLET PO SCH (21:35)
[2022-03-24] MEDS: CLINDAMYCIN HCL 150 MG CAPSULE PO SCH ×4 (00:04→18:03)
[2022-03-24] MEDS: IBUPROFEN 400 MG TABLET PO PRN ×3 (00:04→17:53)
--- NOTE | 2022-03-24 00:04 | NUR ---
GPS RN NOTES C/O GENERALIZED PAIN,MOTRIN 400MG PO GIVEN ORDERED.
[2022-03-24] MEDS: LEVOTHYROXINE SODIUM 50 MCG TABLET PO SCH (06:03)
[2022-03-24 08:00] VITALS: BP 110/76
[2022-03-24] MEDS: LIDOCAINE 5% (PATCH) 1 EA PATCH TP SCH (08:15)
[2022-03-24] MEDS: OLANZAPINE 2.5 MG TABLET PO SCH ×2 (08:16→16:33)
[2022-03-24] MEDS: PANTOPRAZOLE 40 MG TABLET.DR PO SCH (08:16)
[2022-03-24] MEDS: EZETIMIBE 10 MG TABLET PO SCH (08:16)
[2022-03-24] MEDS: GABAPENTIN 300 MG CAPSULE PO SCH ×3 (08:16→16:32)
[2022-03-24] MEDS: DIVALPROEX SODIUM 250 MG TABLET.DR PO SCH ×3 (08:16→16:32)
--- NOTE | 2022-03-24 08:16 | NUR ---
RN NOTE PATIENT C/O GENERALIZED PAIN, MOTRIN 400 MG GIVEN.
[2022-03-24] MEDS: TOPIRAMATE 25 MG TABLET PO SCH ×2 (08:20→16:32)
[2022-03-24] MEDS: NEOMY SULF/BACITRAC ZN/POLY 15 GM TUBE TP SCH ×2 (09:41→16:33)
[2022-03-24] MEDS: GUAIFENESIN/D-METHORPHAN HB 5 ML UDC PO PRN (15:02)
[2022-03-24 16:00] VITALS: BP 118/76
[2022-03-24] MEDS: LORAZEPAM 0.5 MG TABLET PO PRN (17:53)
--- NOTE | 2022-03-24 17:53 | NUR ---
RN NOTE PATIENT NOTED ANXIOUS, EMOTIONAL, LORAZEPAM GIVEN ORDERED. WILL CONTINUE TO MONITOR PT.
--- NOTE | 2022-03-24 18:34 | NUR ---
RN NOTE PATIENT IN BED, AWAKE, A/0 X3, VERBALLY RESPONSIVE. NO SIGNS OF ACUTE DISTRESS NOTED. VISIBLE IN THE UNIT. STILL NOTED WITH DELUSIONS, DEMANDING AT TIMES, MED SEEKER. EASILY GETS EMOTIONAL, CRIES EASILY. PARTICIPATED IN GROUP ACTIVITIES. ALL DUE MEDS GIVEN, TOLERATED WELL. WILL ENDORSE TO NEXT SHIFT FOR CONTINUITY OF CARE.
--- NOTE | 2022-03-24 19:47 | NUR ---
RN NOTE RECEIVED PT IN BED, AWAKE, A/O X3, VERBALLY RESPONSIVE IN BED. NO SIGNS OF ACUTE DISTRESS NOTED. NO COMPLAINTS OF PAIN AT THIS TIME. STABLE ON ROOM AIR, BREATHING EVEN AND UNLABORED. DENIES ANY AUDITORY HALLUCINATIONS OR SUICIDAL IDEATION AT THIS TIME.PT VERY TALKATIVE IN A GOOD MOOD AT THIS TIME.PT ASSISTED WITH TURNING AND REPOSITIONING Q2 HR AND PRN FOR COMFORT AND CIRCULATION. PT HAS NO NEEDS AT THIS TIME. PT BED SIDE RAILS UP X2 FOR SAFETY. BED IN LOCKED LOW POSITION.
[2022-03-24 20:00] VITALS: BP 127/80
[2022-03-24] MEDS: ATORVASTATIN 10 MG TABLET PO SCH (21:35)
[2022-03-24] MEDS: OLANZAPINE 10 MG TABLET PO SCH (21:35)
--- NOTE | 2022-03-24 21:38 | NUR ---
RN NOTE PT VERY SLEEPY WOKEN UP TO TAKE MEDS PT STATED" I DON'T NEED MORE MEDS I JUST WANT TO GO TO SLEEP" Addendum: 03/24/22 at 2209 by MARIVEL HUMPHREY RN ZYPREXA 10MG DISCARDED WITH CHARGE NURSE
[2022-03-25] MEDS: CLINDAMYCIN HCL 150 MG CAPSULE PO SCH ×4 (00:18→17:23)
[2022-03-25] MEDS: ACETAMINOPHEN 325 MG TABLET PO PRN (05:05)
[2022-03-25] MEDS: MAG HYDROX/AL HYDROX/SIMETH 30 ML UDC PO PRN (05:05)
--- NOTE | 2022-03-25 05:10 | NUR ---
rn note prn tylenol and maalox given tolerated well.
--- NOTE | 2022-03-25 07:27 | NUR ---
GPS RN OPENING NOTE RECEIVED PT IN BED, AWAKE, A/O X3, VERBALLY RESPONSIVE IN BED. NO SIGNS OF ACUTE DISTRESS NOTED. NO COMPLAINTS OF PAIN AT THIS TIME. STABLE ON ROOM AIR, BREATHING EVEN AND UNLABORED. DENIES ANY AUDITORY HALLUCINATIONS OR SUICIDAL IDEATION AT THIS TIME. PT VERY TALKATIVE IN A GOOD MOOD AT THIS TIME. SAFETY MEASURES IN PLACE AT ALL TIMES: BED IN LOWEST AND LOCKED POSITION, BED SIDE RAILS UPX2, AND CALL LIGHT WITHIN REACH. WILL CONTINUE TO MONITOR PT.
[2022-03-25] MEDS: LEVOTHYROXINE SODIUM 50 MCG TABLET PO SCH (07:42)
[2022-03-25] MEDS: PANTOPRAZOLE 40 MG TABLET.DR PO SCH (07:42)
[2022-03-25 08:00] VITALS: BP 118/80
[2022-03-25] MEDS: LIDOCAINE 5% (PATCH) 1 EA PATCH TP SCH (09:02)
[2022-03-25] MEDS: GABAPENTIN 300 MG CAPSULE PO SCH ×3 (09:03→17:23)
[2022-03-25] MEDS: TOPIRAMATE 25 MG TABLET PO SCH ×2 (09:03→17:23)
[2022-03-25] MEDS: EZETIMIBE 10 MG TABLET PO SCH (09:03)
[2022-03-25] MEDS: OLANZAPINE 2.5 MG TABLET PO SCH ×2 (09:03→17:23)
[2022-03-25] MEDS: DIVALPROEX SODIUM 250 MG TABLET.DR PO SCH ×3 (09:03→17:23)
[2022-03-25] MEDS: NEOMY SULF/BACITRAC ZN/POLY 15 GM TUBE TP SCH ×2 (09:05→17:23)
[2022-03-25 16:00] VITALS: BP 150/88
[2022-03-25] MEDS: LORAZEPAM 0.5 MG TABLET PO PRN (19:13)
--- NOTE | 2022-03-25 19:15 | NUR ---
RN NOTES PRN ATIVAN 0.5 MG GIVEN PER PATIENT'S REQUEST AT 1913.
[2022-03-25 20:00] VITALS: BP 112/75
[2022-03-25] MEDS: ATORVASTATIN 10 MG TABLET PO SCH (21:13)
[2022-03-25] MEDS: OLANZAPINE 10 MG TABLET PO SCH (21:20)
[2022-03-26] MEDS: CLINDAMYCIN HCL 150 MG CAPSULE PO SCH ×4 (00:14→17:35)
[2022-03-26] MEDS: LEVOTHYROXINE SODIUM 50 MCG TABLET PO SCH (06:23)
[2022-03-26] MEDS: PANTOPRAZOLE 40 MG TABLET.DR PO SCH (06:50)
[2022-03-26 08:00] VITALS: BP 114/62
[2022-03-26] MEDS: NEOMY SULF/BACITRAC ZN/POLY 15 GM TUBE TP SCH ×2 (08:25→16:07)
[2022-03-26] MEDS: GABAPENTIN 300 MG CAPSULE PO SCH ×3 (08:25→16:06)
[2022-03-26] MEDS: EZETIMIBE 10 MG TABLET PO SCH (08:25)
[2022-03-26] MEDS: LIDOCAINE 5% (PATCH) 1 EA PATCH TP SCH (08:25)
[2022-03-26] MEDS: OLANZAPINE 2.5 MG TABLET PO SCH ×2 (08:25→16:07)
[2022-03-26] MEDS: DIVALPROEX SODIUM 250 MG TABLET.DR PO SCH ×3 (08:25→16:06)
[2022-03-26] MEDS: TOPIRAMATE 25 MG TABLET PO SCH ×2 (08:25→16:07)
--- NOTE | 2022-03-26 09:00 | NUR ---
RN NOTE PT AOX4. INTERACTIVE HYPERVERBAL NO BEHAVIORAL ISSUES, MED COMPLIANT
[2022-03-26] MEDS: POLYVINYL ALCOHOL 15 ML BOTTLE EACHEYE PRN (14:38)
[2022-03-26] MEDS: IBUPROFEN 400 MG TABLET PO PRN ×2 (14:39→21:36)
--- NOTE | 2022-03-26 14:40 | NUR ---
RN NOTE- C/O GENERALIZED PAIN. MOTRIN 400 MG ADMINISTERED
[2022-03-26 16:00] VITALS: BP 116/71
--- NOTE | 2022-03-26 19:15 | NUR ---
GPS RN NOTES RECEIVED AMBULATING IN THE HALLWAYS WITH STEADY GAIT.A/O X3,HYPERVERBAL AT TIMES,NEEDY AND DEMANDING,MED COMPLIANT.VERY POLITE,MED SEEKER,REDIRECTABLE.WILL CONTINUE TO MONITOR BEHAVIOR Q 15 MINUTES AND MANAGE ACCORDINGLY.
[2022-03-26 20:00] VITALS: BP 128/71
[2022-03-26 20:19] VITALS: BP 128/71
[2022-03-26] MEDS: OLANZAPINE 10 MG TABLET PO SCH (21:31)
[2022-03-26] MEDS: ATORVASTATIN 10 MG TABLET PO SCH (21:31)
--- NOTE | 2022-03-26 21:36 | NUR ---
GPS RN NOTES C/O GENERALIZED PAIN,MOTRIN 400MG PO GIVEN ORDERED AND PER PATIENT REQUEST
[2022-03-27] MEDS: CLINDAMYCIN HCL 150 MG CAPSULE PO SCH ×5 (00:16→23:46)
[2022-03-27] MEDS: IBUPROFEN 400 MG TABLET PO PRN ×2 (03:54→11:48)
[2022-03-27] MEDS: MAG HYDROX/AL HYDROX/SIMETH 30 ML UDC PO PRN (03:54)
--- NOTE | 2022-03-27 03:54 | NUR ---
GPS RN NOTES AWAKE.C/O GENERALIZED PAIN,MOTRIN 400MG,1 TAB PO GIVEN PER PATIENT REQUEST.
--- NOTE | 2022-03-27 03:54 | NUR ---
GPS RN NOTES FEELING HAVING STOMACH UPSET,MAALOX 30ML PO GIVEN PER PATIENT REQUEST.
[2022-03-27] MEDS: LEVOTHYROXINE SODIUM 50 MCG TABLET PO SCH (06:24)
[2022-03-27 08:00] VITALS: BP 123/90
[2022-03-27] MEDS: LIDOCAINE 5% (PATCH) 1 EA PATCH TP SCH (08:12)
[2022-03-27] MEDS: DIVALPROEX SODIUM 250 MG TABLET.DR PO SCH ×3 (08:13→16:12)
[2022-03-27] MEDS: EZETIMIBE 10 MG TABLET PO SCH (08:13)
[2022-03-27] MEDS: GABAPENTIN 300 MG CAPSULE PO SCH ×3 (08:13→16:12)
[2022-03-27] MEDS: OLANZAPINE 2.5 MG TABLET PO SCH ×2 (08:13→16:12)
[2022-03-27] MEDS: PANTOPRAZOLE 40 MG TABLET.DR PO SCH (08:13)
[2022-03-27] MEDS: TOPIRAMATE 25 MG TABLET PO SCH ×2 (08:13→16:13)
[2022-03-27] MEDS: NEOMY SULF/BACITRAC ZN/POLY 15 GM TUBE TP SCH ×2 (09:07→17:08)
[2022-03-27] MEDS: POLYVINYL ALCOHOL 15 ML BOTTLE EACHEYE PRN (11:00)
--- NOTE | 2022-03-27 11:48 | NUR ---
RN NOTE MOTRIN 400 MG GIVEN FOR C/O GENERALIZED BODY PAIN.
[2022-03-27 16:00] VITALS: BP 121/78
[2022-03-27] MEDS: LORAZEPAM 0.5 MG TABLET PO PRN (16:59)
--- NOTE | 2022-03-27 16:59 | NUR ---
RN NOTE ATIVAN 0.5 MG PO GIVEN FOR ANXIETY. WILL MONITOR AND REASSESS PATIENT.
--- NOTE | 2022-03-27 18:11 | NUR ---
GPS RN NOTE PATIENT IN BED AWAKE, A/O X3, VERBALLY RESPONSIVE. NO SIGNS OF ACUTE DISTRESS NOTED. PATIENT REMAINS HYPERVERBAL, MED SEEKER, NEEDY, ANXIOUS. REDIRECTED NEEDED. COMPLIANT WITH MEDS. ENCOURAGE PATIENT TO ELEVATE LEGS WHEN IN BED TO MINIMIZE LEG SWELLING. SAFETY MEASURE MAINTAINED. RADHA ENDORSE TO NEXT SHIFT FOR CONTINUITY OF CARE.
[2022-03-27 20:54] VITALS: BP 136/78
[2022-03-27] MEDS: OLANZAPINE 10 MG TABLET PO SCH (21:02)
[2022-03-27] MEDS: ATORVASTATIN 10 MG TABLET PO SCH (21:02)
[2022-03-28] MEDS: CLINDAMYCIN HCL 150 MG CAPSULE PO SCH ×3 (05:38→16:58)
[2022-03-28] MEDS: LEVOTHYROXINE SODIUM 50 MCG TABLET PO SCH (06:27)
[2022-03-28 08:00] VITALS: BP 113/69
[2022-03-28] MEDS: GABAPENTIN 300 MG CAPSULE PO SCH ×3 (08:26→16:06)
[2022-03-28] MEDS: TOPIRAMATE 25 MG TABLET PO SCH ×2 (08:26→16:07)
[2022-03-28] MEDS: OLANZAPINE 2.5 MG TABLET PO SCH ×2 (08:26→16:09)
[2022-03-28] MEDS: EZETIMIBE 10 MG TABLET PO SCH (08:26)
[2022-03-28] MEDS: DIVALPROEX SODIUM 250 MG TABLET.DR PO SCH ×2 (08:26→16:06)
[2022-03-28] MEDS: PANTOPRAZOLE 40 MG TABLET.DR PO SCH (08:26)
[2022-03-28] MEDS: NEOMY SULF/BACITRAC ZN/POLY 15 GM TUBE TP SCH ×2 (08:27→16:07)
[2022-03-28] MEDS: LIDOCAINE 5% (PATCH) 1 EA PATCH TP SCH (08:27)
--- NOTE | 2022-03-28 08:44 | NUR ---
Medicaid Analyst: SW contacted spoke with pt's case technician Sloane ([phone]) and notified pt will be discharged 03/29/2022 to [facility].
--- NOTE | 2022-03-28 08:45 | NUR ---
STEPHANIE Family Contact: SW contacted pt's daughter Alberto ([phone]) and left a voicemail that pt will be discharging [facility] on 03/29/2022Sunday.
--- NOTE | 2022-03-28 09:00 | NUR ---
RN NOTE- PATIENT AWAKE, A/O X3, VERBALLY RESPONSIVE. NO SIGNS OF ACUTE DISTRESS NOTED. PATIENT REMAINS COMPLIANT WITH MEDS, HYPERVERBAL, INTERACTIVE, AMBULATORY WITH STEADY GAIT. DENIES SI/HI. WILL CONTINUE TO MONITOR FOR SAFETY AND BEHAVIOR.
[2022-03-28 16:02] VITALS: BP 124/73
[2022-03-28] MEDS: IBUPROFEN 400 MG TABLET PO PRN (17:23)
--- NOTE | 2022-03-28 17:24 | NUR ---
RN NOTE- C/O GENERALIZED PAIN. ADMINISTERED MOTRIN 400MG PO
[2022-03-28] MEDS: LORAZEPAM 0.5 MG TABLET PO PRN (18:40)
--- NOTE | 2022-03-28 18:40 | NUR ---
RN NOTE- C/O RESTLESSNESS / ANXIETY. ATIVAN 0.5 MG ADMINISTERED
[2022-03-28 19:25] VITALS: BP 118/76
[2022-03-28] MEDS: OLANZAPINE 10 MG TABLET PO SCH (21:14)
[2022-03-28] MEDS: ATORVASTATIN 10 MG TABLET PO SCH (21:14)
[2022-03-29] MEDS: CLINDAMYCIN HCL 150 MG CAPSULE PO SCH ×3 (00:55→12:42)
[2022-03-29] MEDS: LEVOTHYROXINE SODIUM 50 MCG TABLET PO SCH (06:13)
[2022-03-29 08:00] VITALS: BP 140/66
[2022-03-29] MEDS: PANTOPRAZOLE 40 MG TABLET.DR PO SCH (08:05)
[2022-03-29] MEDS: TOPIRAMATE 25 MG TABLET PO SCH (08:47)
[2022-03-29] MEDS: EZETIMIBE 10 MG TABLET PO SCH (08:47)
[2022-03-29] MEDS: GABAPENTIN 300 MG CAPSULE PO SCH ×2 (08:47→12:42)
[2022-03-29] MEDS: NEOMY SULF/BACITRAC ZN/POLY 15 GM TUBE TP SCH (08:48)
[2022-03-29] MEDS: DIVALPROEX SODIUM 250 MG TABLET.DR PO SCH (08:48)
[2022-03-29] MEDS: OLANZAPINE 2.5 MG TABLET PO SCH (08:48)
[2022-03-29] MEDS: LIDOCAINE 5% (PATCH) 1 EA PATCH TP SCH (08:48)
--- NOTE | 2022-03-29 09:28 | NUR ---
SW Discharge Note: Patient will be discharged to [facility] located at [address] [place] [id number]; ([phone]) via ambulance. Jade cupola man from [facility] ([phone]) accepted pt and is welcoming pt today. Pts daughter Alberto ([phone]) who is aware and agreeable of dc. Pt appears to be alert and oriented x3. Pt denies visual/auditory hallucinations. Pt denies denies suicidal or homicidal ideation. Patient will continue to follow-up with (Psychiatrist) Dr. Maradiaga [address] [facility] [address], [place] [address]; ([phone]). (Residential Property Manager) Dr. Monroe [address] [facility] [address], [place] [address]; ([phone]). STEPHANIE contacted [address] [facility] [address], [place] [address], F: [phone] and spoke with medical secretary receptionist Lidia to scheduled an appointment for April 12 at 9AM.
[2022-03-29] MEDS: LORAZEPAM 0.5 MG TABLET PO PRN (13:15)
--- NOTE | 2022-03-29 13:15 | NUR ---
NURSE NOTES: PT VERY ANXIOUS AT THIS TIME. REQUESTED ATIVAN. ADMINISTERED ORDERED. PT BETO WELL. WILL CONT TO MONITOR.
--- NOTE | 2022-03-29 13:30 | NUR ---
NURSE NOTE: 56 YEAR OLD FEMALE DISCHARGED TO [facility] IN [facility]. COMPLIANT WITH MEDICATIONS, COOPERATIVE WITH TREATMENT PLANS. PT DENIES SI/HI AND INSTRUCTED TO CALL 911 IF DEVELOPING SI/HI. BEHAVIOR IMPROVED, PSYCHIATRIC TX PLANS MET, ,EDICAL TX PLANS DEFERRED FOR CONTINUAL MONITORING. EDUCATED PT ABOUT AFTER CARE PLAN AND COPY PROVIDED. RETURNED PERSONAL BELONGINGS TO PT. ALL VALUABLES FROM [facility] RETURNED TO PT. MEDICATIONS RECONCILED WITH DR PHELPS AND DR ESCAMILLA. DR PHELPS REMOVED THE HOLD ON PT AND BOTH HE AND DR ESCAMILLA DISCHARGED THE PT. REPORT GIVEN TO DEV DINH AT [facility] FOR CONTINUITY OF CARE. PT SIGNED SOME DISCHARGE PAPER WORK, BUT REFUSED OTHER. PT REFUSED PICTURES TO BE TAKEN. PT LEFT UNIT AT 1330 VIA AMBULANCE.
== END 2022-03-29 13:30 | DRG 876 ==
LOC: GPS 17:18
PROVIDERS: ADMIT Psychiatry & Neurology Psychosomatic Medicine; ATTEND Nurse Practitioner Acute Care
PROC: 0JBR0ZZ Excision of Left Foot Subcutaneous Tissue and Fascia, Open Approach (ICD-10-PCS; principal; 2022-03-15)
PROC: 0JCR0ZZ Extirpation of Matter from Left Foot Subcutaneous Tissue and Fascia, Open Approach (ICD-10-PCS; 2022-03-15)
DX: F31.64 Bipolar disorder, current episode mixed, severe, with psychotic features (principal); M79.7 Fibromyalgia; Z88.0 Allergy status to penicillin; E03.9 Hypothyroidism, unspecified; E66.9 Obesity, unspecified; E78.5 Hyperlipidemia, unspecified; F29 Unspecified psychosis not due to a substance or known physiological condition; F19.10 Other psychoactive substance abuse, uncomplicated; F43.10 Post-traumatic stress disorder, unspecified; G89.29 Other chronic pain; J44.9 Chronic obstructive pulmonary disease, unspecified; Z88.6 Allergy status to analgesic agent; Z88.2 Allergy status to sulfonamides; Z91.199 Patient's noncompliance with other medical treatment and regimen due to unspecified reason; Z73.6 Limitation of activities due to disability; Z85.41 Personal history of malignant neoplasm of cervix uteri; S91.102A Unspecified open wound of left great toe without damage to nail, initial encounter; X58.XXXA Exposure to other specified factors, initial encounter; Y93.9 Activity, unspecified; Y92.89 Other specified places as the place of occurrence of the external cause; M79.671 Pain in right foot; Z20.822 Contact with and (suspected) exposure to COVID-19; G43.909 Migraine, unspecified, not intractable, without status migrainosus; W25.XXXA Contact with sharp glass, initial encounter; Z79.899 Other long term (current) drug therapy; Z68.30 Body mass index [BMI] 30.0-30.9, adult; K04.7 Periapical abscess without sinus; S90.452A Superficial foreign body, left great toe, initial encounter
CPT/HCPCS: 36415; 70450-TC; 70487-TC; 73630-TC; 80053-TC; 80061-TC; 80164-TC; 82962-TC; 84443-TC; 85025-TC; 87040-TC; 87081-TC; J3490; J7050; Q9967